=== PATIENT | female | born 1965 | race Caucasian/White ===

== ENCOUNTER → 2017-11-04 | Outpatient (CLI) | payer OTHER ==
--- NOTE | 2017-11-04 15:09 | XR ---
Left wrist and left hand HISTORY: Left wrist sprain, pain 3 views of the left hand and 4 views of the left wrist are submitted. Bone mineralization, joint spaces and alignment are maintained. IMPRESSION: No fracture or dislocation of the left wrist or hand. Consider wrist MRI as indicated for better evaluation.
== END | disposition home or self-care (01) ==
LOC: RADXRMAIN 14:43
PROVIDERS: ATTEND Emergency Medicine
DX: S63.502A Unspecified sprain of left wrist, initial encounter (principal)

== ENCOUNTER → 2017-11-12 | Outpatient (CLI) | payer OTHER ==
--- NOTE | 2017-11-12 17:37 | XR ---
PROCEDURE: XR wrist complete LT - 4 views DATE AND TIME: 11/12/2017 5:23 PM REFERRING PHYSICIAN: Derrick Little DO CLINICAL INDICATION: PHH, S63.502D Wrist pain TECHNIQUE: Department protocol plus dedicated scaphoid view. COMPARISON: None FINDINGS: There is no fracture or malalignment. The soft tissues are unremarkable. IMPRESSION: NO ACUTE PROCESS.
== END | disposition home or self-care (01) ==
LOC: RADXRMAIN 17:02
PROVIDERS: ATTEND Emergency Medicine
DX: S63.502D Unspecified sprain of left wrist, subsequent encounter (principal)

== ENCOUNTER → 2019-01-16 | Outpatient (CLI) | payer OTHER ==
--- NOTE | 2019-01-16 22:58 | MR ---
EXAMINATION TYPE: MR ankle LT wo con, MR foot LT wo con DATE OF EXAM: 01/16/2019 COMPARISON: None. HISTORY: Lt foot/ankle pain and swelling since fall in December 25, xrays at [facility] Standard multiplanar, multisequence MRI departmental protocol Multiplanar, multisequence images of the left ankle and foot were acquired. FINDINGS: Distal Achilles tendon is intact. Plantar fascia is intact. The peroneus brevis and longus tendons are felt intact. Mild soft tissue swelling over lateral aspect of the calcaneus is seen. Flexor tendons posterior medial aspect of the ankle are intact. Extensor t endons anteriorly are intact. The anterior tibiofibular and anterior talofibular ligaments are intact. Ankle mortise symmetry is pr eserved. Normal sinus tarsi fat is present. Hindfoot and midfoot articulations are preserved. There is mild to moderate subcutaneous edema along the plantar surface. There is osseous contusion and/or bone marrow edema involving the proximal plant ar aspect of the cuboid bone with scattered edema involving the anterior talus medial navicular axial image 7 near articulation with the medial cuneiform. There is valgus positioning at metatarsophalangeal joints of all toes. There is flexion of the second through fifth toes. There is inhomogeneity of the fat saturation involving the forefoot making evalu ation slightly suboptimal. Bone marrow signal intensity is felt likely maintained at this level. Mild subcutaneous edema diffusely is present. IMPRESSION: No distinct tendon or ligamentous tear is present. There is midfoot and hindfoot osseous edema may be related to altered normal walking mechanics due to pain with focal moderate plantar surf michelle edema hindfoot and midfoot level noted.
== END | disposition home or self-care (01) ==
LOC: RADMRIMAIN 16:25
PROVIDERS: ATTEND Physician Assistant
DX: R60.0 Localized edema (principal); M79.672 Pain in left foot; E78.5 Hyperlipidemia, unspecified

== ENCOUNTER 2022-06-30 10:29 | Day surgery (SDC) | payer OTHER ==
[2022-06-26 15:15] VITALS: BMI 25.7
[~2022-06-30 10:29] MED LIST: LACTATED RINGERS 1,000 ML IV SCH; LIDOCAINE 1% (10MG/ML) FOR IV START INTRADERMA PRN
[2022-06-30 11:22] VITALS: TEMP 97
[2022-06-30] MEDS ORDERED: LIDOCAINE 2% INJ 20 MG/ML (2 ML VIAL) ONE (12:30)
[2022-06-30] MEDS ORDERED: PROPOFOL 10 MG/ML 20 ML VIAL IV ONE (12:30)
--- NOTE | 2022-06-30 12:46 | P.PCN ---
Date of Procedure: 06/30/22 Procedure(s) Performed: BRIEF HISTORY: Patient is a 57-year-old pleasant white female scheduled for an elective colonoscopy as a part of evaluation for history of colon polyps. Her last coloscopy was 5 years ago. PROCEDURE PERFORMED: Colonoscopy. PREOPERATIVE DIAGNOSIS: History of colon polyps. IV sedation per Anesthesia. PROCEDURE: After informed consent was obtained, the patient, was brought into the endoscopy unit. IV sedation was administered by Anesthesia under continuous monitoring. Digital rectal examination was normal. Initially the Olympus CF-160 flexible video colonoscope was then inserted in the rectum, gradually advanced into the cecum moderate difficulty . Careful examination was performed as the scope was gradually being withdrawn. Ileocecal valve and the appendiceal orifice were visualized and appeared normal. Prep was excellent. Mucosa of the cecum, ascending colon, transverse colon, descending colon, sigmoid colon, and rectum appeared normal. scattered sigmoid diverticulosis Retroflexion was performed in the rectum and no lesions were seen. The patient tolerated the procedure well. IMPRESSION: Normal-appearing colon from rectum to cecum no evidence of colorectal neoplasia. Scattered sigmoid diverticulosis. RECOMMENDATIONS: Findings of this examination were discussed with the patient as well as a family. She was advised to have a repeat screening colonoscopy in 10 years..
[2022-06-30 13:16] VITALS: BP 134/78; PULSE 90; RESP 20
== END 2022-06-30 13:18 | disposition home or self-care (01) ==
LOC: ORWHC2ENDO 10:29
PROVIDERS: ATTEND Internal Medicine Gastroenterology
DX: Z12.11 Encounter for screening for malignant neoplasm of colon (principal); K57.30 Diverticulosis of large intestine without perforation or abscess without bleeding; E78.5 Hyperlipidemia, unspecified; F41.9 Anxiety disorder, unspecified; Z87.891 Personal history of nicotine dependence; Z86.010 Personal history of colon polyps; Z79.899 Other long term (current) drug therapy
CPT/HCPCS: 45378; J2704; J2001